=== PATIENT | male | born 1980 | race Caucasian/White ===

== ENCOUNTER 2016-07-01 21:16 | Emergency (ER) | payer OTHER ==
[~2016-07-01] VITALS: Ht 172.7 cm; Wt 77.1 kg
[~2016-07-01 21:16] MED LIST: BACTRIM DS 8001 TA1 PO; BANOPHEN50 MG PO; BENADRYL50 MG PO; CHANTIX1 M1 PO; CLEOCIN150 MG PO; CLINDAMYCIN HC300 MG PO; CLINDAMYCIN150 MG PO; EPSOM SALT; FIORICET W/CODE1 CAP PO; LEVOFLOXACIN500 MG PO; LIDEX 0.05% CRE15 GM T; LOMOTIL 0.025 M1 TA1 PO; MOTRIN800 MG PO; Motrin,Rufen800 MG PO; NAPROSYN500 MG PO; NORCO 325 MG-51 TAB PO; PREDNICOT20 MG PO; PREDNISONE20 M1 PO; PRILOSEC20 M2 PO; ULTRAM50 MG PO
[2016-07-01 21:45] VITALS: BP 151/90
[2016-07-01] MEDS ORDERED: NEOSPORIN ANT14.2 GM TP (22:10)
[2016-07-01] MEDS ORDERED: BACTRIM DS 8001 TA1 PO (22:10)
== END 2016-07-01 23:23 | disposition home or self-care (01) ==
LOC: ED 21:16
DX: S91.332A Puncture wound without foreign body, left foot, initial encounter (principal); F17.200 Nicotine dependence, unspecified, uncomplicated; Z88.0 Allergy status to penicillin; W22.8XXA Striking against or struck by other objects, initial encounter; Y93.89 Activity, other specified; Y92.9 Unspecified place or not applicable; Y99.9 Unspecified external cause status

== ENCOUNTER 2017-07-08 20:32 | Emergency (ER) | payer SELFPAY ==
[~2017-07-08] VITALS: Ht 172.7 cm; Wt 68.0 kg
[~2017-07-08 20:32] MED LIST changes: +NEOSPORIN ANT14.2 GM TP
[2017-07-08] MEDS ORDERED: ANAPROX DS550 MG PO (21:06)
[2017-07-08] MEDS ORDERED: Orphenadrine C100 MG PO (21:06)
[2017-07-08 21:23] VITALS: BP 126/83
== END 2017-07-08 22:07 | disposition home or self-care (01) ==
LOC: ED 20:32
DX: S20.211A Contusion of right front wall of thorax, initial encounter (principal); F17.200 Nicotine dependence, unspecified, uncomplicated; Z79.899 Other long term (current) drug therapy; Z88.0 Allergy status to penicillin; Y04.0XXA Assault by unarmed brawl or fight, initial encounter; Y93.89 Activity, other specified; Y92.89 Other specified places as the place of occurrence of the external cause; Y99.9 Unspecified external cause status

== ENCOUNTER 2022-11-30 20:23 | Emergency (ER) | payer SELFPAY ==
[~2022-11-30] VITALS: Ht 172.7 cm; Wt 68.0 kg
[~2022-11-30 20:23] MED LIST changes: +ANAPROX DS550 MG PO; +Orphenadrine C100 MG PO
[2022-12-01 00:19] VITALS: BP 143/89
== END 2022-12-01 00:42 | disposition home or self-care (01) ==
LOC: ED 20:23
DX: R51.9 Headache, unspecified (principal); H53.8 Other visual disturbances; K21.9 Gastro-esophageal reflux disease without esophagitis; J45.909 Unspecified asthma, uncomplicated; F32.A Depression, unspecified; Z88.0 Allergy status to penicillin; Z98.890 Other specified postprocedural states

== ENCOUNTER 2022-12-11 12:13 | Emergency (ER) | payer SELFPAY ==
[~2022-12-11] VITALS: Ht 170.1 cm; Wt 68.0 kg
[2022-12-11 12:49] VITALS: BP 120/81
== END 2022-12-11 15:25 | disposition home or self-care (01) ==
LOC: ED 12:13
DX: G43.909 Migraine, unspecified, not intractable, without status migrainosus (principal); K21.9 Gastro-esophageal reflux disease without esophagitis; J45.909 Unspecified asthma, uncomplicated; F32.A Depression, unspecified; Z88.0 Allergy status to penicillin; Z98.890 Other specified postprocedural states

== ENCOUNTER 2023-01-15 22:25 | Emergency (ER) | payer SELFPAY ==
[~2023-01-15] VITALS: Ht 167.6 cm; Wt 77.1 kg
[2023-01-15 23:09] LABS: ACT PARTIAL THROMBO TIME 28.5 SECONDS (20.0-32.1)
[2023-01-15 23:10] LABS: BASO # 0.1 10*3/uL (0.0-0.1); BASO % 1.2 % (0.0-1.0); EOS # 0.2 10*3/uL (0.0-0.4); EOS % 2.2 % (1.0-4.0); HEMATOCRIT 41.1 % (42.0-52.0); LYMPH # 3.6 10*3/uL (1.3-4.4); LYMPH % 41.4 % (27.0-41.0); MEAN CELL VOLUME 87.6 fl (80.0-94.0); MEAN CORPUSCULAR HGB 30.9 pg (27.0-31.0); MEAN CORPUSCULAR HGB CONC 35.3 g/dl (33.0-37.0); MEAN PLATELET VOLUME 8.6 fl (9.6-12.3); MONO # 0.8 10*3/uL (0.1-1.0); MONO % 9.5 % (3.0-9.0); NEUT # 3.9 10*3/uL (2.3-7.9); NEUT % 45.5 % (47.0-73.0); PLATELET COUNT AUTOMATED 330 10*3/uL (130-400); RED BLOOD COUNT 4.69 10*6/uL (4.50-5.90); RED CELL DISTRI WIDTH 12.8 % (0-14.5); WHITE BLOOD COUNT 8.6 10*3/uL (4.8-10.8)
[2023-01-15 23:22] LABS: ALKALINE PHOSPHATASE 73 U/L (46-116); BUN 7 mg/dl (9-23); CHLORIDE 107 mmol/L (98-107); POTASSIUM 3.6 mmol/L (3.4-5.1); SGPT/ALT 11 U/L (5-49); TOTAL PROTEIN 6.6 gm/dL (6.0-8.0)
[2023-01-16 01:16] VITALS: BP 144/75
== END 2023-01-16 01:10 | disposition home or self-care (01) ==
LOC: ED 22:25
PROVIDERS: Internal Medicine
DX: R07.89 Other chest pain (principal); K21.9 Gastro-esophageal reflux disease without esophagitis; J45.909 Unspecified asthma, uncomplicated; F32.A Depression, unspecified; Z88.0 Allergy status to penicillin; Z98.890 Other specified postprocedural states

== ENCOUNTER 2023-05-15 21:31 | Emergency (ER) | payer SELFPAY ==
[~2023-05-15] VITALS: Ht 170.1 cm; Wt 70.3 kg
[2023-05-15] MEDS ORDERED: methylPREDNISolone sod succ 125 MG VIAL IM ONE (21:40)
[2023-05-15] MEDS ORDERED: PREDNISONE20 M1 PO (21:41)
== END 2023-05-15 22:04 | disposition home or self-care (01) ==
LOC: ED 21:31
DX: T54.91XA Toxic effect of unspecified corrosive substance, accidental (unintentional), initial encounter (principal); L25.3 Unspecified contact dermatitis due to other chemical products; K21.9 Gastro-esophageal reflux disease without esophagitis; J45.909 Unspecified asthma, uncomplicated; F32.A Depression, unspecified; Z88.0 Allergy status to penicillin; Z98.890 Other specified postprocedural states; Y92.89 Other specified places as the place of occurrence of the external cause

== ENCOUNTER 2023-06-01 12:14 | Emergency (ER) | payer SELFPAY ==
[~2023-06-01] VITALS: Ht 172.7 cm; Wt 70.3 kg
[2023-06-01 12:27] VITALS: BP 150/100
[2023-06-01] MEDS ORDERED: VIBRAMYCIN100 MG PO (12:38)
== END 2023-06-01 12:40 | disposition home or self-care (01) ==
LOC: ED 12:14
DX: L03.314 Cellulitis of groin (principal); G43.909 Migraine, unspecified, not intractable, without status migrainosus; Z88.0 Allergy status to penicillin; Z79.899 Other long term (current) drug therapy; Z98.890 Other specified postprocedural states

== ENCOUNTER 2023-08-19 23:31 | Emergency (ER) | payer OTHER ==
[~2023-08-19] VITALS: Ht 172.7 cm; Wt 70.3 kg
[~2023-08-19 23:31] MED LIST changes: +VIBRAMYCIN100 MG PO
[2023-08-19 23:35] VITALS: BP 154/92
[2023-08-19] MEDS ORDERED: LEVOFLOXACIN 500 MG TAB PO ONE (23:40)
[2023-08-19] MEDS ORDERED: NEO/POLYMYX B SULF/DEXAMETH 200 DRP BOT OT ONE (23:40)
[2023-08-19] MEDS ORDERED: CORTISPORIN SUS10 ML OT (23:41)
[2023-08-19] MEDS ORDERED: LEVOFLOXACIN500 MG PO (23:41)
== END 2023-08-19 23:57 | disposition home or self-care (01) ==
LOC: ED 23:31
DX: H60.91 Unspecified otitis externa, right ear (principal); K21.9 Gastro-esophageal reflux disease without esophagitis; J45.909 Unspecified asthma, uncomplicated; F32.A Depression, unspecified; Z88.0 Allergy status to penicillin; Z98.890 Other specified postprocedural states; Z90.49 Acquired absence of other specified parts of digestive tract

== ENCOUNTER 2023-10-23 16:50 | Emergency (ER) | payer OTHER ==
[~2023-10-23] VITALS: Ht 170.1 cm; Wt 70.3 kg
[~2023-10-23 16:50] MED LIST changes: +CORTISPORIN SUS10 ML OT
[2023-10-23 17:24] VITALS: BP 126/93
== END 2023-10-23 18:23 | disposition home or self-care (01) ==
LOC: ED 16:50
DX: J02.8 Acute pharyngitis due to other specified organisms (principal); Z20.822 Contact with and (suspected) exposure to COVID-19; K21.9 Gastro-esophageal reflux disease without esophagitis; J45.909 Unspecified asthma, uncomplicated; F32.A Depression, unspecified; Z88.0 Allergy status to penicillin; Z98.890 Other specified postprocedural states; Z90.49 Acquired absence of other specified parts of digestive tract

== ENCOUNTER 2025-01-08 23:37 | Emergency (ER) | payer MEDICAID ==
[~2025-01-08] VITALS: Wt 63.5 kg
== END 2025-01-09 00:10 ==
LOC: ED 23:37
DX: S61.512A Laceration without foreign body of left wrist, initial encounter (principal); S61.511A Laceration without foreign body of right wrist, initial encounter; R45.851 Suicidal ideations; F10.129 Alcohol abuse with intoxication, unspecified; K21.9 Gastro-esophageal reflux disease without esophagitis; J45.909 Unspecified asthma, uncomplicated; F32.A Depression, unspecified; Z88.0 Allergy status to penicillin; X78.9XXA Intentional self-harm by unspecified sharp object, initial encounter; Y93.89 Activity, other specified; Y92.89 Other specified places as the place of occurrence of the external cause; Y99.8 Other external cause status; Y90.9 Presence of alcohol in blood, level not specified

== ENCOUNTER 2025-01-30 13:23 | Emergency (ER) | payer OTHER ==
[~2025-01-30] VITALS: Ht 170.1 cm; Wt 69.4 kg
[2025-01-30 13:32] VITALS: BP 156/93
[2025-01-30] MEDS ORDERED: PREDNISONE50 MG PO (15:05)
[2025-01-30] MEDS ORDERED: AVPAK AZITHROM250 M1 PO (15:05)
== END 2025-01-30 15:10 | disposition home or self-care (01) ==
LOC: ED 13:23
DX: J45.909 Unspecified asthma, uncomplicated (principal); G43.909 Migraine, unspecified, not intractable, without status migrainosus; K21.9 Gastro-esophageal reflux disease without esophagitis; F32.A Depression, unspecified; Z88.0 Allergy status to penicillin; Z20.822 Contact with and (suspected) exposure to COVID-19